=== PATIENT | female | born 1940 | race Two or more races ===

== ENCOUNTER 2021-12-04 12:44 | Outpatient (REF) | payer MEDICARE, OTHER, SELFPAY | END 2021-12-04 12:45 | disposition home or self-care (01) | LOC: HO.WCC 12:44 | PROVIDERS: PCP Internal Medicine; Referring Provider Internal Medicine; Visit Provider Physician Assistant | DX: S61.411D Laceration without foreign body of right hand, subsequent encounter (principal); S00.03XD Contusion of scalp, subsequent encounter; I48.20 Chronic atrial fibrillation, unspecified; Z79.01 Long term (current) use of anticoagulants | CPT/HCPCS: 99213 ==

== ENCOUNTER 2022-07-25 10:27 | Outpatient (REF) | payer MEDICARE, OTHER, SELFPAY ==
[2022-07-25 11:03] LABS: Vancomycin Trough 20.5 mcg/mL (10.0-20.0)
== END 2022-07-25 10:28 | disposition home or self-care (01) ==
LOC: HO.MMNH1L 10:27
PROVIDERS: Visit Provider Family Medicine
DX: T84.53XD Infection and inflammatory reaction due to internal right knee prosthesis, subsequent encounter (principal); I10 Essential (primary) hypertension; Z47.33 Aftercare following explantation of knee joint prosthesis
CPT/HCPCS: 36415; 80202

== ENCOUNTER 2022-07-26 14:38 | Outpatient (REF) | payer MEDICARE, OTHER, SELFPAY ==
[2022-07-26 17:33] LABS: Vancomycin Trough 29.3 mcg/mL (10.0-20.0)
== END 2022-07-26 14:39 | disposition home or self-care (01) ==
LOC: HO.MMNH1L 14:38
PROVIDERS: Visit Provider Family Medicine
DX: I10 Essential (primary) hypertension (principal); T84.53XD Infection and inflammatory reaction due to internal right knee prosthesis, subsequent encounter; Z79.899 Other long term (current) drug therapy
CPT/HCPCS: 36415; 80202

== ENCOUNTER 2022-07-26 17:38 | Emergency (ER) | payer MEDICARE, OTHER, SELFPAY ==
[2022-07-26] VITALS (7 sets, daily range): BP systolic 98–115; BP diastolic 31–77; PULSE 66–80; RESP 14–20; TEMP 36.8–37.3; O2SAT 88–98; BMI 31.3
--- NOTE | ~2022-07-26 | CT_ITS ---
EXAMINATION: CT ANGIOGRAM OF THE CHEST WITH AND WITHOUT CONTRAST (CT PULMONARY ANGIOGRAM FOR PE) CLINICAL INFORMATION: Reason for Exam hypoxia, dizziness COMPARISON: None TECHNIQUE: Prior to contrast administration, noncontrast localization images were obtained. Subsequently, multidetector volumetric imaging was performed from the thoracic inlet to below the diaphragms following the administration of 80 mL Omnipaque 350 intravenous contrast. No contrast reaction reported Sagittal, coronal, and MIP oblique sagittal reformatted images were obtained on the CT workstation, uploaded to PACS, and reviewed. This CT examination was performed using dose optimization techniques as appropriate, variously including the following: *Automated exposure control *Adjustment of mA and/or kV according to patient size (this includes techniques or standardized protocols for targeted exams where dose is matched to indication/reason for exam; i.e. extremities or head) *Use of iterative reconstruction technique Total exam dose-length product 484 mGy-cm FINDINGS: QUALITY OF STUDY/CONTRAST BOLUS: Satisfactory. PULMONARY ARTERIES: Positive for PE in the right upper lung. Image 153. Findings also suggest small area of PE in the left upper lung on image 157. Probable PE in a subsegmental left anterior midlung zone image 210 The ventricular septum is not bowed. There is no reflux into the hepatic veins Thoracic inlet is within normal limits. Some mildly prominent axillary adenopathy is noted. Partially visualized upper abdominal structures grossly unremarkable. Centrally some mild central adenopathy. No bulky adenopathy. Findings suggest central adenopathy in the hilar regions right greater than left. Imaging lung butler. Right lung; Small right effusion with right basilar atelectasis versus infiltrate. Left lung; Minimal basilar atelectasis. Review of the bone windows does not demonstrate a suspicious finding. CT/CT angio chest PE protocol IMPRESSION: Small areas of segmental pulmonary embolism described. Small right-sided effusion with adjacent atelectasis or infiltrate. Prominent right greater than left hilar adenopathy. This could be reactive. Follow-up would be recommended to reassess. 3 month follow-up This critical result was discussed with Dr. Perkins at 10:18 PM on 07/26/2022 and it was ascertained that the content and urgency of the report was understood at the time of direct communication. VTE: positive
--- NOTE | ~2022-07-26 | XR_ITS ---
EXAMINATION: XR CHEST CLINICAL INFORMATION: Weakness COMPARISON: None TECHNIQUE: Frontal view of the chest was obtained. FINDINGS: The lungs are well-expanded with bilateral increase interstitial markings. No acute consolidation or pleural effusion seen. Heart size enlarged with dual pacer electrodes in right atrium and right ventricle. There is a right PICC catheter with its tip in proximal to mid SVC. There is moderate spondylosis dorsal spine. No gross lytic or sclerotic process seen. XR/XR chest 1V IMPRESSION: No acute cardiopulmonary process seen.
--- NOTE | 2022-07-26 18:00 | ECG_ITS ---
Test Reason : SOB Blood Pressure : / mmHG Vent. Rate : 068 BPM Atrial Rate : 068 BPM P-R Int : 254 ms QRS Dur : 120 ms QT Int : 446 ms P-R-T Axes : 051 -54 066 degrees QTc Int : 474 ms Atrial-sensed ventricular-paced rhythm with prolonged AV conduction Abnormal ECG No previous ECGs available Referred By: Cayla Perkins Electronically Signed By:ERIC LAUGHLIN MD
--- NOTE | 2022-07-26 18:04 | ED.WEAKNESS ---
HPI - Weakness General Chief complaint: General Medical Stated complaint: dizziness Time Seen by Provider: 07/26/22 17:45 Source: patient, EMS and old records reviewed Mode of arrival: EMS Limitations: no limitations History of Present Illness HPI Narrative: 82 yo female with hx of GERD, HTN, asthma, LEONORA, s/p R TKR with infected prosthetic on levofloxacin/IV vancomycin via R PICC, on 5mg eliquis bid high risk for DVT here with c/o having fentanyl overdose today - patient was on 25mcg then increased dose to 50mcg today. Patient subsequently was delerious and out of it. Around 11am received IV vancomycin. Since then BP has been low 85/39 and has felt like she has a hard time swallowing though on arrival the patient has been eating ice without issue she does note her throat is dry. Patient isn't sure why they increased her fentanyl. She currently feels her mouth is dry, she feels dizzy when she sits up. Her O2 sats on arrival is 88% on RA - has not missed DOAC. MD Complaint: generalized weakness (fentanyl intoxication, dizziness) Onset (ago): day(s) (early this AM) Duration: improved Location: generalized Migration: none Severity: severe Quality: dull Relieving factors: other (IV narcan unknown dose - not documented in EMR from SNF ) Exacerbating factors: other (believed to have started with new 50mcg fentanyl patch) Context: new medication Associated symptoms: loss of appetite and other (dry mouth, raspy voice, dizziness with sitting up. ) Related Data Allergies Allergy/AdvReac Type Severity Reaction Status Date / Time fentanyl Allergy Unknown Unknown Verified 07/26/22 17:59 bactrim Allergy Unknown Unknown Uncoded 07/26/22 18:00 Review of Systems Review of Systems: Constitutional : No Fever, No Chills, pos Fatigue, pos Malaise ENT/Mouth : pos sore throat, No Rhinorrhea Eyes: No Eye Pain, No Swelling, No Redness Cardiovascular : No Chest Pain, No SOB, No Dyspnea on Exertion, No Orthopnea, No Edema, No Palpitations Respiratory : No Cough, No Sputum, No Wheezing Gastrointestinal : No Nausea, No Vomiting, No Diarrhea, No Constipation, No abdominal Pain, No Hematochezia, No Melena Genitourinary : No Dysuria, No Urinary Frequency, No Hematuria, Musculoskeletal : No joint pain, No Myalgias, No Joint Swelling Skin : No Skin Lesions, No rash Neuro : No Weakness, No Numbness, pos Dizziness, No Headache Psych : No Anxiety/Panic, No Depression All other systems reviewed and are negative [facility] Past Medical History Attestation statement: The following information was validated with the patient. Medical History Asthma Depression HTN (hypertension) Infected prosthetic knee joint LEONORA (obstructive sleep apnea) Surgical History Total knee replacement status Social History Social History (Updated 07/26/22 @ 18:06 by Cayla Perkins DO) Patient Tobacco Use Status: Never used Tobacco Use of substances other than those prescribed or required for medical reasons: No Advance Directives: No Advance Directives Information Provided: No Physical Exam Vital Signs: Vital Signs: Last Vital Signs Temp 98.6 F 07/26/22 22:18 Pulse 80 07/26/22 22:18 Resp 14 07/26/22 22:18 BP 98/36 L 07/26/22 22:18 Pulse Ox 97 07/26/22 22:18 O2 Del Method 07/26/22 22:18 O2 Flow Rate 1 07/26/22 22:18 BMI result Body Mass Index 31.3 Appearance: Alert. Oriented X3. No acute distress. Eyes: Pupils equal, round and reactive to light. ENT: Pharynx dry MM. Neck: Normal inspection. Neck supple. CVS: Normal heart rate and rhythm. Pulses normal. Respiratory: No respiratory distress. Breath sounds normal. Abdomen: Soft and non-tender. Skin: Skin warm and dry. pale skin color. Normal skin turgor. Extremities: RLE wrapped in dressings and compressive mekhi wrap R foot warm to touch, mild pitting edema around the ankle Neuro: Oriented X 3. No motor deficit. No sensory deficit. Course Course Course Narrative: discussed with ALEXIS Marshall who's reviewing notes so she is not 100% positive. notes document that narcan 5mg IM -possibly 20mg IM administered that finally worked per EMR. IV was documented. It was given at 1348, 1350, 1351. CTA PE ordered for new O2 requirement looking for effusions, CHF, aspiration pneumonia and VTE through DOAC (was taken off recently for surgery - she herself has no complaints of CP/SOB). repeat trop flat BP improved, attempting to wean O2, UA contaminated, hemoglobin at baseline was on eliquis until recent revision on 07/17 then went back on it a few days ago - denies needing O2 at facility. call from Radiology 1016pm PE small non occlusive subsegmental no R heart strain, small R sided effusion. could be dissolving. patient is on DOAC, no longer has O2 requirement, 97% on RA, will redose on eliquis - was off of it for surgery and just restarted a few days ago this isn't a failed DOAC at this time, denies feeling CP/SOB she is asymptomatic. HR in 70s. Patient placed in physician observation at 1045pm. The indication for observation is that the patient needs more time for observation given concern for overdose at facility as well as patient is nervous to return. At this time the patient is well developed well nourished, lungs clear, CV RRR, abd nontender, neuro is intact. Started on DOAC, has no symptoms now, able to eat and drink without issue. Feels much better. MDM - Weakness MDM Narrative Medical decision making narrative: 82 yo female with hx of GERD, HTN, asthma, LEONORA, s/p R TKR with infected prosthetic on levofloxacin/IV vancomycin via R PICC, on 5mg eliquis bid high risk for DVT here with reported fentanyl overdose due to increase in patch today that required possibly 20mg of narcan to reverse but since then has been dizzy, weak, feeling like she has a difficult time swallowing though no issue taking in ice here. She has slightly low BP - didn't eat or drink today - will need labs, cultures, EKG, lactic acid, UA. CXR for new hypoxia possible aspiration. The patient unlikely has PE given DOAC use. Dispo per results and findings. Lab Data Result diagrams: 07/26/22 18:48 07/26/22 18:48 Labs: Lab Results 07/26/22 07/26/22 07/26/22 Range/Units 18:39 18:48 18:48 WBC 8.4 (4.8-10.8) X10*3/uL RBC 3.03 L (4.20-5.50) X10*6/uL Hgb 8.5 L (12.0-16.0) g/dl Hct 27.2 L (37.0-47.0) % MCV 89.8 (80.0-98.0) fL MCH 28.1 (27.0-33.0) pg MCHC 31.3 (31.0-35.0) g/dl RDW 14.8 (11.0-16.0) % Plt Count 444 H (160-400) X10*3/uL MPV 8.8 L (9.4-12.3) fL Immature Gran % (Auto) 0.5 H (0.0-0.4) % Neut % (Auto) 68.3 (45-73) % Lymph % (Auto) 15.8 L (20-40) % [place] % (Auto) 10.8 (2-11) % Eos % (Auto) 4.4 H (0-4) % Baso % (Auto) 0.2 (0-2) % Lymph # (Auto) 1.3 (1.2-4.9) X10*3/uL [place] # (Auto) 0.9 (0.1-1.2) X10*3/uL Eos # (Auto) 0.4 (0.0-0.4) X10*3/uL Baso # (Auto) 0.0 (0.0-0.2) X10*3/uL Abs Immat Gran (auto) 0.04 H (0.00-0.03) X10*3/uL Absolute Neuts (auto) 5.8 (2.0-8.3) x10*3/uL Absolute Nucleated RBC 0.000 (0.0-0.012) X10*3/uL Nucleated RBC % (auto) 0.0 (0.0-0.2) /100WBC PT 18.4 H (10.0-13.1) SEC INR 1.6 H (0.9-1.1) Sodium (135-145) mmol/L Potassium (3.3-5.1) mmol/L Chloride (96-108) mmol/L Carbon Dioxide (22-29) mmol/L Anion Gap (12-20) BUN (9-16) mg/dL Creatinine (0.5-1.4) mg/dL Estim Creat Clear Calc Estimated GFR Random Glucose (60-115) mg/dL Lactic Acid (0.5-2.0) mmol/L Calcium (8.4-10.2) mg/dL Magnesium (1.6-2.6) mg/dL Total Bilirubin (0.0-1.0) mg/dL Direct Bilirubin (0.0-0.5) mg/dL AST (5-31) U/L ALT (0-31) U/L Alkaline Phosphatase (39-117) U/L Troponin I High Sens (<3.5-17.0) ng/L B-Natriuretic Peptide (<100) pg/mL Total Protein (6.5-8.0) g/dL Albumin (3.5-5.0) g/dL Urine Color Urine Appearance Urine pH (5.0-9.0) Ur Specific [place] (1.005-1.025) Urine Protein (Neg-Trace) mg/dL Urine Glucose (UA) (Negative) mg/dL Urine Ketones (Negative) mg/dL Urine Blood (Negative) Urine Nitrite (Negative) Ur Leukocyte Esterase (Negative) Urine RBC (0-2) /HPF Urine WBC (0-5) /HPF Ur Squamous Epith Cells (0-2) /HPF Urine Bacteria (None Seen) Hyaline Casts (0-2) /LPF COVID-19 ([facility]) Negative (Negative) COVID-19 Clin Com See Note 07/26/22 07/26/22 07/26/22 Range/Units 18:48 18:48 18:48 WBC (4.8-10.8) X10*3/uL RBC (4.20-5.50) X10*6/uL Hgb (12.0-16.0) g/dl Hct (37.0-47.0) % MCV (80.0-98.0) fL MCH (27.0-33.0) pg MCHC (31.0-35.0) g/dl RDW (11.0-16.0) % Plt Count (160-400) X10*3/uL MPV (9.4-12.3) fL Immature Gran % (Auto) (0.0-0.4) % Neut % (Auto) (45-73) % Lymph % (Auto) (20-40) % [place] % (Auto) (2-11) % Eos % (Auto) (0-4) % Baso % (Auto) (0-2) % Lymph # (Auto) (1.2-4.9) X10*3/uL [place] # (Auto) (0.1-1.2) X10*3/uL Eos # (Auto) (0.0-0.4) X10*3/uL Baso # (Auto) (0.0-0.2) X10*3/uL Abs Immat Gran (auto) (0.00-0.03) X10*3/uL Absolute Neuts (auto) (2.0-8.3) x10*3/uL Absolute Nucleated RBC (0.0-0.012) X10*3/uL Nucleated RBC % (auto) (0.0-0.2) /100WBC PT (10.0-13.1) SEC INR (0.9-1.1) Sodium 139 (135-145) mmol/L Potassium 4.8 (3.3-5.1) mmol/L Chloride 101 (96-108) mmol/L Carbon Dioxide 25 (22-29) mmol/L Anion Gap 18 (12-20) BUN 9 (9-16) mg/dL Creatinine 0.61 (0.5-1.4) mg/dL Estim Creat Clear Calc 77.9 Estimated GFR > 60 Random Glucose 111 (60-115) mg/dL Lactic Acid 1.8 (0.5-2.0) mmol/L Calcium 8.4 (8.4-10.2) mg/dL Magnesium 2.1 (1.6-2.6) mg/dL Total Bilirubin 0.2 (0.0-1.0) mg/dL Direct Bilirubin < 0.2 (0.0-0.5) mg/dL AST 19 D (5-31) U/L ALT 6 (0-31) U/L Alkaline Phosphatase 86 D (39-117) U/L Troponin I High Sens 36.1 H (<3.5-17.0) ng/L B-Natriuretic Peptide 256 H (<100) pg/mL Total Protein 6.3 L (6.5-8.0) g/dL Albumin 2.9 L (3.5-5.0) g/dL Urine Color Urine Appearance Urine pH (5.0-9.0) Ur Specific [place] (1.005-1.025) Urine Protein (Neg-Trace) mg/dL Urine Glucose (UA) (Negative) mg/dL Urine Ketones (Negative) mg/dL Urine Blood (Negative) Urine Nitrite (Negative) Ur Leukocyte Esterase (Negative) Urine RBC (0-2) /HPF Urine WBC (0-5) /HPF Ur Squamous Epith Cells (0-2) /HPF Urine Bacteria (None Seen) Hyaline Casts (0-2) /LPF COVID-19 ([facility]) (Negative) COVID-19 Clin Com 07/26/22 07/26/22 Range/Units 19:11 21:24 WBC (4.8-10.8) X10*3/uL RBC (4.20-5.50) X10*6/uL Hgb (12.0-16.0) g/dl Hct (37.0-47.0) % MCV (80.0-98.0) fL MCH (27.0-33.0) pg MCHC (31.0-35.0) g/dl RDW (11.0-16.0) % Plt Count (160-400) X10*3/uL MPV (9.4-12.3) fL Immature Gran % (Auto) (0.0-0.4) % Neut % (Auto) (45-73) % Lymph % (Auto) (20-40) % [place] % (Auto) (2-11) % Eos % (Auto) (0-4) % Baso % (Auto) (0-2) % Lymph # (Auto) (1.2-4.9) X10*3/uL [place] # (Auto) (0.1-1.2) X10*3/uL Eos # (Auto) (0.0-0.4) X10*3/uL Baso # (Auto) (0.0-0.2) X10*3/uL Abs Immat Gran (auto) (0.00-0.03) X10*3/uL Absolute Neuts (auto) (2.0-8.3) x10*3/uL Absolute Nucleated RBC (0.0-0.012) X10*3/uL Nucleated RBC % (auto) (0.0-0.2) /100WBC PT (10.0-13.1) SEC INR (0.9-1.1) Sodium (135-145) mmol/L Potassium (3.3-5.1) mmol/L Chloride (96-108) mmol/L Carbon Dioxide (22-29) mmol/L Anion Gap (12-20) BUN (9-16) mg/dL Creatinine (0.5-1.4) mg/dL Estim Creat Clear Calc Estimated GFR Random Glucose (60-115) mg/dL Lactic Acid (0.5-2.0) mmol/L Calcium (8.4-10.2) mg/dL Magnesium (1.6-2.6) mg/dL Total Bilirubin (0.0-1.0) mg/dL Direct Bilirubin (0.0-0.5) mg/dL AST (5-31) U/L ALT (0-31) U/L Alkaline Phosphatase (39-117) U/L Troponin I High Sens 33.0 H (<3.5-17.0) ng/L B-Natriuretic Peptide (<100) pg/mL Total Protein (6.5-8.0) g/dL Albumin (3.5-5.0) g/dL Urine Color Yellow Urine Appearance Clear Urine pH 5.5 (5.0-9.0) Ur Specific [place] <= 1.005 (1.005-1.025) Urine Protein Negative (Neg-Trace) mg/dL Urine Glucose (UA) Negative (Negative) mg/dL Urine Ketones Negative (Negative) mg/dL Urine Blood Negative (Negative) Urine Nitrite Negative (Negative) Ur Leukocyte Esterase Moderate (2+) H (Negative) Urine RBC 3-5 H (0-2) /HPF Urine WBC 6-10 H (0-5) /HPF Ur Squamous Epith Cells 6-10 (0-2) /HPF Urine Bacteria None Seen (None Seen) Hyaline Casts 3-5 (0-2) /LPF COVID-19 ([facility]) (Negative) COVID-19 Clin Com ECG Data Attestation: I personally reviewed and interpreted this ECG as follows: ECG interpretation date: 07/26/22 ECG interpretation time: 19:01 Interpretation: Rate: 68 Rhythm: paced rhythm [place]: left Normal P waves. Normal AMY. wide QRS complex. ST T wave : nonspecific no CHASTITY qTC: normal prior studies: no priors The study has been interpreted contemporaneously by me. . Discharge Plan Discharge Clinical Impression: Multiple subsegmental pulmonary emboli without acute cor pulmonale Accidental fentanyl overdose Qualifiers: Encounter type: initial encounter Qualified Code(s): T40.411A - Poisoning by fentanyl or fentanyl analogs, accidental (unintentional), initial encounter Patient Disposition: Still a Patient
[2022-07-26] MEDS: Lactated Ringers 1,000 ML 999 ML IV (18:51)
[2022-07-26 18:54] LABS: MANUAL DIFF FLAG NO
[2022-07-26 18:55] LABS: Basophils Percent Auto 0.2 % (0-2); Eosinophils Absolute Auto 0.4 X10*3/uL (0.0-0.4); Eosinophils Percent Auto 4.4 % (0-4); Hematocrit 27.2 % (37.0-47.0); Hemoglobin 8.5 g/dl (12.0-16.0); Imm Gran Abs Auto 0.04 X10*3/uL (0.00-0.03); Imm Gran Pct Auto 0.5 % (0.0-0.4); Lymphocytes Absolute Auto 1.3 X10*3/uL (1.2-4.9); Lymphocytes Percent Auto 15.8 % (20-40); Mean Corpuscular HGB Conc 31.3 g/dl (31.0-35.0); Mean Corpuscular Hemoglobin 28.1 pg (27.0-33.0); Mean Corpuscular Volume 89.8 fL (80.0-98.0); Mean Platelet Volume 8.8 fL (9.4-12.3); Monocytes Absolute Auto 0.9 X10*3/uL (0.1-1.2); Monocytes Percent Auto 10.8 % (2-11); Neutrophils Absolute Auto 5.8 x10*3/uL (2.0-8.3); Neutrophils Percent Auto 68.3 % (45-73); Platelet Count 444 X10*3/uL (160-400); Red Blood Count 3.03 X10*6/uL (4.20-5.50); Red Cell Distribution Width 14.8 % (11.0-16.0); White Blood Count 8.4 X10*3/uL (4.8-10.8)
[2022-07-26 19:00] LABS: INTERNATIONAL NORM RATIO 1.6 (0.9-1.1); Prothrombin Time 18.4 SEC (10.0-13.1)
--- NOTE | 2022-07-26 19:00 | PC.NURSE ---
PATIENT BLOOD DRAW WAS DONE BY THIS PCT ,PATIENT WAS CHANGE INTO HOSPITAL ATTIRE BY THIS PCT AND PCT MADHAVI ,PATIENT WAS HOOKED UP TO INSULATION NOZZLEMAN BY THIS PCT .
[2022-07-26 19:02] LABS: COVID-19 Test Negative (Negative); IDNOW Serial# 16C4AD1C
[2022-07-26 19:09] LABS: Lactic Acid 1.8 mmol/L (0.5-2.0)
--- NOTE | 2022-07-26 19:15 | PC.NURSE ---
Pt V/S are low, pt was connected to LR 1000ml/hr but provider order. pt was on the telemetry and it shows AV pacemaker. Pt o2 was on 88, this RN connected to NC 2L. PT lungs are clear, no signs of edema, skin turgor +, a/o x4. Pt labs has been drawn and urine was collected and sent to the lab. Pt had surgery on her right knee, and the right leg is very painful, pt was assisted to change to the hospital gown and to the bedpan. will continue to monitor.
[2022-07-26 19:18] LABS: B Type Natriuretic Peptide 256 pg/mL (<100); Troponin-I High Sensitivity 36.1 ng/L (<3.5-17.0)
[2022-07-26 19:21] LABS: Alanine Aminotransferase 6 U/L (0-31); Albumin Level 2.9 g/dL (3.5-5.0); Alkaline Phosphatase 86 U/L (39-117); Anion Gap 18 (12-20); Aspartate Amino Transferase 19 U/L (5-31); Bilirubin Direct < 0.2 mg/dL (0.0-0.5); Bilirubin Total 0.2 mg/dL (0.0-1.0); Blood Urea Nitrogen 9 mg/dL (9-16); Calcium 8.4 mg/dL (8.4-10.2); Carbon Dioxide 25 mmol/L (22-29); Chloride 101 mmol/L (96-108); Creatinine Clr Calc Pharmacy 77.9; Estimated Glomerular Filt Rate > 60; Glucose Random 111 mg/dL (60-115); Magnesium 2.1 mg/dL (1.6-2.6); Potassium 4.8 mmol/L (3.3-5.1); Sodium 139 mmol/L (135-145); Total Protein 6.3 g/dL (6.5-8.0)
--- NOTE | 2022-07-26 19:33 | PC.NURSE ---
PATIENT WAS ASSISTED UNTO BEDPAN ,PATIENT VOIDED LARGE AMOUNT OF URINE .
[2022-07-26 19:41] LABS: Appearance Urine Clear; Color Urine Yellow; Glucose Urine UA Negative (Negative); Leukocyte Esterase Urine Moderate (2+) (Negative); Nitrite Urine Negative (Negative); PH 5.5 (5.0-9.0); Specific Gravity - Urine <= 1.005 (1.005-1.025); UMIC TRIGGER UACC YES; Urine Blood Negative (Negative); Urine Ketones Negative (Negative); Urine Protein Negative (Neg-Trace)
[2022-07-26 19:46] LABS: Bacteria Urine None Seen (None Seen); UACC Culture Trigger YES
[2022-07-26] MEDS: iohexoL 350 MG/ML 100 ML INFUS..BTL IV (20:38)
--- NOTE | 2022-07-26 21:40 | PC.NURSE ---
dr mello at bedside is speaking to the pt about staying at the house to see case managment in the morning to try to figure out what happened at [facility] in re-gards to the narcan administered
--- NOTE | 2022-07-26 22:17 | PC.NURSE ---
Addendum entered by Jak Desir 07/26/22 22:20: Pt BP is 98/36 low for pt, provider is aware. Original Note: Pt o2 is 96% RN decrease the o2 on 1L, to monitor her oxygen. Pt was sit on the bedpan and was able to urinate.
[2022-07-26] MEDS: HYDROmorphone HCl 2 MG TABLET 1 MG PO (22:56)
--- NOTE | 2022-07-26 22:59 | PC.NURSE ---
Pt meds were administered as order. Pt has no apparent of distress. Pt V/S are stable and oxygen has improved. RN will give report.
--- NOTE | 2022-07-27 00:59 | PC.NURSE ---
Patient is alert and oriented x3. VSS. Patient reports pain in right knee 6/10 at present-at tolerable level. O2 Sat 97-99% RA. Purewick applied to assist in pain management and to prevent episodes of urinary incontinence. Call rosario within patient's reach. Patient instructed to use a call rosario PRN for assistance-patient verbalized understanding.
[2022-07-27 05:56] VITALS: BP 141/50; PULSE 86; RESP 16; TEMP 37.2; O2SAT 96
[2022-07-27 07:08] VITALS: BP 122/60; RESP 20; TEMP 37.4; O2SAT 93
--- NOTE | 2022-07-27 07:41 | PC.NURSE ---
patient a/ox4 . pearlla , patient wears glasses . heart rate regular at 77 beats per minute lungs clear in upper lobes , diminished in right lower lobe . patient has difficulty hearing uses hearing aides normally . skin pink warm and dry . patient has PIC line located in right upper arm positive for patency . recent knee surgery preformed to right knee on July 16. abdomen soft not tender . positive for bowel sounds in all quadrants . patient aware of plan of care .
[2022-07-27] MEDS: oxyCODONE HCl Immed Release 5 MG TABLET PO (08:03)
[2022-07-27] MEDS: Acetaminophen 325 MG TABLET 975 MG PO (08:04)
--- NOTE | 2022-07-27 08:07 | PC.NURSE ---
patient medicated with PRN oxycode 5mg and Tylenol 975 for 04/22 in right knee where patient had knee surgery done to remove infected tissue . patient aware of plan of care .
--- NOTE | 2022-07-27 08:45 | PHA.MEDREC ---
Pharmacy Consult ? Medication Reconciliation Pharmacy has completed the medication reconciliation. Patient came from [facility] with a medication list. Spoke with CRM MARKETING EXECUTIVE to confirm last dose of vancomycin. Patient only received half the vancomycin bag in the morning on 07/26. When bag was restart the infusion did not stop until after 3pm. Patient had a trough come back high at night since the infusion ran late. Since patient did not receive any vancomycin overnight, recommended to Dr. Luna to get a random level and give a one time dose so patient does not become subtheraputic. CRM MARKETING EXECUTIVE also reported patient fentanyl patch was increase from 25 mcg to 50 mcg two days ago. Kay Genao, PharmD
[2022-07-27 09:52] LABS: Vancomycin Trough 14.4 mcg/mL (10.0-20.0)
[2022-07-27 10:26] VITALS: BP 119/38; PULSE 78; RESP 13; TEMP 36.8; O2SAT 95
--- NOTE | 2022-07-27 10:54 | PHA.PROG ---
Admission Date/Time: Indication: Infected Knee Prosthesis Weight in k.3 kg Adjusted body weight in Kg: [place] body weight in Kg: Obesity Dosing Indication % IBW: Serum Creatinine - Last 168 Hours 07/26/22 18:48 Creatinine 0.61 Estimated CrCl and GFR - Last 168 Hours 07/26/22 18:48 Estim Creat Clear Calc 77.9 Estimated GFR > 60 Vancomycin Loading Dose: n/a Current Vancomycin Dosing Regimen: 1000 mg Q12H Date and Time for next Vancomycin Level to be drawn: 07/28 @ 2099 Vancomycin Trough 14.4 mcg/mL (10.0-20.0) 07/27/22 09:06 Pharmacist Comments on Vancomycin Plan: Patient came from [facility] while on vancomycin 1000 mg Q12H Spoke with LIBRARY MEDIA SPECIALIST at [facility]. Patient was given dose at 11 AM but only half the bag was infused. Once patient was calm later in the day, patient recieved the rest of the bag. The bag did not finish until after 3 pm and patient had a trough prior to the night dose. Since the bag was infusing late, trough was high. Random level drawn this morning was 14.4. Therefore will restart patient of vancomycin 1000 mg Q12H. Next trough to be drawn in 3 dose on 07/28 @ 2100. Kay Genao PharmD Vancomycin dosing will take advantage of ELIKE as a clinical decision support tool that uses Bayesian modeling to calculate individual patient's pharmacokinetic parameters and forecast the patient's drug concentration time course with the target goal AUC 24 range of 400 - 600 mg/L/hr.
[2022-07-27] MEDS: vancomycin HCL 1,000 MG in 0.9 % Sodium Chloride 250 ML 270 MG IV (11:35)
[2022-07-27 12:03] VITALS: BP 151/65; PULSE 83; RESP 19; TEMP 37.1; O2SAT 97
--- NOTE | 2022-07-27 13:19 | MHC.CM.ED ---
Received case management consult overnight. Patient was d/c'd from [facility] to [facility] on 07/19/22 on IV Vanco. Patient came to ER due to lethargy. Patient found to have 2 Fentanyl patches on. Patient also found to have PE. Patient will not be admitted. Patient is a sister of [facility]. Sister Jin Lester is with patient. Patient and Sister Jovana does not want to return to [facility]. Would like to go to [facility]. Patient is on IV Vanco for 8 week. [facility] is not able to accommodate IV antibiotics. Referral broadcasted in [facility]. [facility] and [facility] are only facilities able to offer a bed. Patient and Sister Jin accept bed at [facility]. BLS booked for 330pm. Med [facility] with chart. Patient, Sister Jovana, Arlette ESPINOZA and Yonny VENTURA aware. Continue to monitor for for d/c needs.
== END 2022-07-27 14:32 | disposition skilled nursing facility (03) ==
PROVIDERS: Emergency Medicine; Emergency Provider Student in an Organized Health Care Education/Training Program; PCP Internal Medicine
DX: I26.94 Multiple subsegmental thrombotic pulmonary emboli without acute cor pulmonale (principal); T40.411A Poisoning by fentanyl or fentanyl analogs, accidental (unintentional), initial encounter; R42 Dizziness and giddiness; Y92.9 Unspecified place or not applicable; R60.0 Localized edema; I10 Essential (primary) hypertension; Z86.718 Personal history of other venous thrombosis and embolism; Z79.01 Long term (current) use of anticoagulants; Z20.822 Contact with and (suspected) exposure to COVID-19
CPT/HCPCS: 36415; 71045; 71275; 80048; 80076; 80202; 81001; 83605; 83735; 83880; 84484; 85025; 85610; 87040; 87086; 87635; 93005; 96361; 96365; 96366; 99285; J3370; Q9967